=== PATIENT | male | born 1960 | race Caucasian/White ===

== ENCOUNTER → 2018-12-16 | Outpatient (CLI) | payer OTHER | END | disposition home or self-care (01) | LOC: LAB 07:12 | PROVIDERS: ATTEND Internal Medicine Gastroenterology | DX: Z01.812 Encounter for preprocedural laboratory examination (principal) | CPT/HCPCS: 36415; 82565; 84520 ==

== ENCOUNTER → 2018-12-22 | Outpatient (CLI) | payer OTHER ==
[2018-12-22 09:38] LABS: Albumin 4.2 g/dL (3.4-5.0); Calcium 9.8 mg/dL (8.5-10.1); Potassium 4.9 mmol/L (3.5-5.1)
[2018-12-22 09:40] LABS: BUN/Creatinine Ratio 18.4; Phosphorus 2.6 mg/dL (2.5-4.90)
== END | disposition home or self-care (01) ==
LOC: LAB 08:37
PROVIDERS: ATTEND Internal Medicine Gastroenterology
DX: R94.5 Abnormal results of liver function studies (principal)
CPT/HCPCS: 36415; 80069

== ENCOUNTER → 2018-12-28 | Outpatient (CLI) | payer OTHER ==
[2018-12-28 09:02] LABS: Bilirubin, Direct 0.2 mg/dL (0-0.2); Bilirubin, Total 0.8 mg/dL (0.2-1.0); Total Protein 7.2 g/dL (6.4-8.2)
== END | disposition home or self-care (01) ==
LOC: LAB 08:02
PROVIDERS: ATTEND Internal Medicine Gastroenterology
DX: D18.03 Hemangioma of intra-abdominal structures (principal); R94.5 Abnormal results of liver function studies
CPT/HCPCS: 36415; 80076